=== PATIENT | male | born 1970 | race Caucasian/White ===

== ENCOUNTER 2022-04-22 13:14 | Emergency (ER) | payer OTHER, SELFPAY ==
--- NOTE | ~2022-04-22 | XR_ITS ---
EXAMINATION: XR foot LT min 3V DATE: 04/22/2022 13:37 INDICATION: Left foot pain. TECHNIQUE: 4 views of left foot were obtained. COMPARISON: None. FINDINGS: There is mild hallux valgus. No fracture. There is mild osteoarthritis of first metatarsoph alangeal joint and some of the interphalangeal joints and midfoot joints. There is an enthesophyte at posterior aspect of calcaneal tuberosity. IMPRESSION: 1. Mild polyarticular osteoarthritis. 2. Mild hallux valgus. Reviewed, dictated and finalized at location A.
--- NOTE | ~2022-04-22 | XR_ITS ---
EXAMINATION: XR ankle LT min 3V DATE: 04/22/2022 13:37 INDICATION: Left ankle pain. TECHNIQUE: 4 views of left ankle were obtained. COMPARISON: None. FINDINGS: Bone alignment is normal. No fracture. There is mild midfoot osteoarthritis. There is ankle soft tissue swelling. IMPRESSION: 1. Mild midfoot osteoarthritis. Reviewed, dictated and finalized at location A.
--- NOTE | 2022-04-22 13:16 | ED.LOWEXIN ---
HPI - Extremity Injury (Lower) General Chief Complaint: Extremity Injury, Lower Stated Complaint: INJURED L ANKLE Time Seen by Provider: 04/22/22 13:16 Source: patient Mode of arrival: ambulatory Limitations: no limitations History of Present Illness HPI Narrative: Mr. Wolfe is a 51-year-old male patient presenting to the clinic today with complaints of left ankle pain/foot pain. He reports no known injury. Reports that the ankle started hurting 2 days ago and now he is having pain to the left foot over the 1st metatarsal. He has mild redness and swelling over this area. States that it is very painful with walking Related Data Home Medications Medication Instructions Recorded Confirmed lisinopril 10 mg tablet 10 mg PO DAILY 06/08/19 04/22/22 pantoprazole 40 mg tablet,delayed 40 mg PO DAILY 04/22/22 04/22/22 release Allergies Allergy/AdvReac Type Severity Reaction Status Date / Time No Known Allergies Allergy Verified 04/22/22 13:26 Review of Systems Review of Systems: Pertinent positives per HPI. Patient denies any fever, chills, rash, headache, visual changes, dizziness, cough, runny nose, sore throat, shortness of breath, chest pain, palpitations, nausea, vomiting, diarrhea, constipation, abdominal pain, or any urinary issues. [facility] Past Medical History Medical History (Updated 04/22/22 @ 13:56 by Lalo Hurt APRN) HTN (hypertension) No pertinent family history Surgical History Surgical History H/O hernia repair Hx of cholecystectomy Social History Social History Smoking status: Never smoker Comments At the time of my signature, I reviewed and agree with the nursing past medical, surgical, social, and family history. There is no relevant family history pertinent to the patient complaint. Exam Narrative: General: Well-developed, well nourished, in no apparent distress Head: Normocephalic, atraumatic. Cardio: Regular rate and rhythm, s1 and s2 normal, no murmur appreciated. Resp: Clear to auscultation bilaterally, no rhonchi, rales, wheezing or rubs. Musculoskeletal: No deformity, mild lateral left ankle swelling, tender to palpation over the base of the left 1st metatarsal mild swelling and red, pain with flexion and extension against resistance, pain to this area with ambulation, muscle strength strong and equal, peripheral pulse strong,no cyanosis, normal gait and station Course Course Emergency Course: Portions of this record may have been created with voice recognition software. Level of Care: Express Care Visit Vital Signs Vital signs: Vital signs reviewed MDM - Extremity Injury (Lower) MDM Narrative Medical decision making narrative: At the time of visit patient is resting comfortably on exam table. 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 I suspect the patient either has acute gout arthritis or osteoarthritis causing his discomfort. Prescription for prednisone was sent to the pharmacy and he voiced understanding of discharge instructions and agrees to treatment plan. Patient reports that he is unable to get his prescription until tomorrow and is requesting a dose of prednisone while he is here. 40 mg of prednisone was dispensing given to the patient while in the clinic today Differential Diagnosis Differential diagnosis: Likely ankle sprain and strain, fracture of toe, ankle fracture and other (Osteoarthritis, gouty arthritis) Imaging Data Radiologist's impression: Close Ankle X-Ray (Signed) Gunnar Johnson - 04/22/22 Launch?[facility] [address] [place] [address] XRay Report Signed Patient: Jeffrey Wolfe : 1970 MR#: [id number] Age/Sex: 51 / M Acct:[id number] Loc: [facility]? ? ADM Date:
[2022-04-22] MEDS: predniSONE 20 MG TABLET 40 MG PO (14:08)
[2022-04-22 14:17] VITALS: BP 106/75; PULSE 110; RESP 16; TEMP 36.3; O2SAT 99
== END 2022-04-22 14:09 | disposition home or self-care (01) ==
PROVIDERS: Emergency Provider Nurse Practitioner Family
DX: M19.072 Primary osteoarthritis, left ankle and foot (principal); I10 Essential (primary) hypertension
CPT/HCPCS: 73610; 73630; 99213; G0463; J7512